=== PATIENT | female | born 1955 | race Caucasian/White ===

== ENCOUNTER → 2024-04-04 11:16 | Outpatient (REF) | payer MEDICARE, OTHER, SELFPAY | LOC: RAD 11:16 | PROVIDERS: ATTENDING PHYSICIAN Internal Medicine | DX: L72.9 Follicular cyst of the skin and subcutaneous tissue, unspecified (principal) | CPT/HCPCS: 76604 ==

== ENCOUNTER → 2024-10-25 13:54 | Outpatient (REF) | payer MEDICARE, OTHER, SELFPAY | LOC: WDC 13:54 | PROVIDERS: ATTENDING PHYSICIAN Internal Medicine | DX: Z12.31 Encounter for screening mammogram for malignant neoplasm of breast (principal); Z12.39 Encounter for other screening for malignant neoplasm of breast | CPT/HCPCS: 77063; 77067 ==